=== PATIENT | female | born 1950 | race Caucasian/White ===

== ENCOUNTER 2016-10-05 14:17 | Observation (INO) | payer OTHER ==
[~2016-10-05] VITALS: Ht 154.9 cm; Wt 74.0 kg
[~2016-10-05 14:17] MED LIST: BENICAR20 MG PO; JANUMET 50/11 TABLET PO; LEVEMIR FL100 UNITS/ SC; LIPITOR80 MG PO; NITROLINGUAL S4.9 GM TL; NOVOLOG PE100 UNITS/; OMEPRAZOLE20 MG PO; PLAVIX75 MG PO; SYNTHROID100 MCG PO; TOPROL XL50 MG PO; TRICOR145 MG PO
[2016-10-05 15:06] LABS: HEMATOCRIT 38.8 % (36.0-46.0); MCH 30.4 PG (29.0-34.0); MCHC 33.5 G/DL (30.0-36.0); MCV 90.9 FL (83-99); MEAN PLAT.VOLUME 11.4 uM^3 (9.5-12.4); PLATELET COUNT 225 K/uL (156-360); RBC DIS.WIDTH-CV 13.2 % (11.8-14.6); RED BLOOD COUNT 4.27 M/uL (3.80-5.20); WHITE BLOOD COUNT 7.6 K/uL (4.1-10.2)
[2016-10-05 15:13] LABS: ADD MIUA? NO; BILIRUBIN NEGATIVE; BLOOD NEGATIVE; COLOR YELLOW ((YELLOW)); GLUCOSE (STRIP) NEGATIVE; KETONES NEGATIVE; LEUKOCYTES NEGATIVE; NITRITE NEGATIVE; PROTEIN (STRIP) NEGATIVE; SPECIFIC GRAVITY 1.015 (1.000-1.030); UROBILINOGEN 0.2 MG/DL (0.2-1.0)
[2016-10-05 15:26] LABS: CHLORIDE 106 mEq/L (99-109); POTASSIUM 4.1 mEq/L (3.7-5.4); SODIUM 142 mEq/L (136-147)
[2016-10-05 15:27] LABS: TROP-I INTERPRETATION NEGATIVE; TROPONIN-I < 0.01 ng/mL (0.0-0.30)
[2016-10-05 15:28] LABS: GLUCOSE 147 mg/dL (70-99)
[2016-10-05 15:29] LABS: ANION GAP 14 MEQ/L (2-14)
[2016-10-05 15:30] LABS: TOTAL BILIRUBIN 0.4 mg/dL (0.0-1.0)
[2016-10-05 15:31] LABS: ALKALINE PHOSPHATASE 54 IU/L (3-129)
[2016-10-05 15:32] LABS: GFR ESTIMATE (CALCULATED) 53 mL/min/
[2016-10-05 15:33] LABS: UREA NITROGEN (BUN) 24 mg/dL (9-23)
[2016-10-05 15:35] LABS: LIPASE 49 U/L (1.0-51.0)
[2016-10-05] MEDS ORDERED: NITROLINGUAL S4.9 GM MM (16:19)
[2016-10-05] MEDS ORDERED: OMEPRAZOLE40 M1 PO (16:20)
[2016-10-05] MEDS ORDERED: NOVOLOG PE100 UNITS/ SC (16:20)
[2016-10-05] MEDS ORDERED: NOVOLOG 10100 UNITS/ SC (16:21)
[2016-10-05] MEDS ORDERED: LO-DOSE ASPIRIN81 M2 PO (16:22)
[2016-10-05] MEDS ORDERED: FISH OIL 1,0001 EAC7 PO (16:22)
[2016-10-05] MEDS ORDERED: MELATONIN5 M1 PO (16:22)
[2016-10-05] MEDS ORDERED: CENTRUM SILVER1 EAC3 PO (16:22)
[2016-10-05] MEDS ORDERED: LEVEMIR100 UNIT/2 SC (16:22)
[2016-10-05] MEDS ORDERED: SYNTHROID100 MCG PO (16:22)
[2016-10-05 21:18] VITALS: BP 106/56
[2016-10-05 22:27] LABS: TROP-I INTERPRETATION NEGATIVE; TROPONIN-I < 0.01 ng/mL (0.0-0.30)
[2016-10-06 04:16] LABS: HEMATOCRIT 34.6 % (36.0-46.0); MCH 30.1 PG (29.0-34.0); MCHC 32.9 G/DL (30.0-36.0); MCV 91.3 FL (83-99); MEAN PLAT.VOLUME 11.5 uM^3 (9.5-12.4); PLATELET COUNT 184 K/uL (156-360); RBC DIS.WIDTH-CV 13.3 % (11.8-14.6); RBC DIS.WIDTH-SD 42.6 % (39-53); RED BLOOD COUNT 3.79 M/uL (3.80-5.20); WHITE BLOOD COUNT 7.4 K/uL (4.1-10.2)
[2016-10-06 04:25] VITALS: BP 141/82
[2016-10-06 04:28] LABS: CHLORIDE 110 mEq/L (99-109); SODIUM 142 mEq/L (136-147)
[2016-10-06 04:30] LABS: GLUCOSE 108 mg/dL (70-99)
[2016-10-06 04:31] LABS: ANION GAP 9 MEQ/L (2-14)
[2016-10-06 04:34] LABS: GFR ESTIMATE (CALCULATED) 48 mL/min/
[2016-10-06 04:35] LABS: UREA NITROGEN (BUN) 23 mg/dL (9-23)
[2016-10-06 04:38] LABS: TROP-I INTERPRETATION NEGATIVE; TROPONIN-I < 0.01 ng/mL (0.0-0.30)
[2016-10-06 07:24] LABS: POINT-OF-CARE METER ID UU14162513
[2016-10-06 08:30] VITALS: BP 102/63
[2016-10-06 12:45] LABS: POINT-OF-CARE METER ID UU13113700
[2016-10-06 13:11] VITALS: BP 106/52; BP 125/71
== END 2016-10-06 13:41 | disposition home or self-care (01) ==
LOC: EME 14:17 → 5WEST 16:32 → EDOF 16:32 → 5WEST 19:19
PROVIDERS: Hospitalist; Internal Medicine; Nurse Practitioner Family
DX: R07.89 Other chest pain (principal); I25.10 Atherosclerotic heart disease of native coronary artery without angina pectoris; I25.2 Old myocardial infarction; R00.2 Palpitations; N18.9 Chronic kidney disease, unspecified; Z95.5 Presence of coronary angioplasty implant and graft; E78.5 Hyperlipidemia, unspecified; I12.9 Hypertensive chronic kidney disease with stage 1 through stage 4 chronic kidney disease, or unspecified chronic kidney disease; E11.22 Type 2 diabetes mellitus with diabetic chronic kidney disease; Z79.82 Long term (current) use of aspirin; Z79.4 Long term (current) use of insulin; E03.9 Hypothyroidism, unspecified; D50.9 Iron deficiency anemia, unspecified; Z79.899 Other long term (current) drug therapy
CPT/HCPCS: 71020; 80048; 80053; 81003; 82948; 83690; 84484; 85027; 93005; 99281; 99284; G0378; J1644; J1815; J7030

== ENCOUNTER 2017-01-11 12:34 | Inpatient (IN) | payer OTHER ==
[~2017-01-11] VITALS: Ht 154.9 cm; Wt 75.0 kg
[~2017-01-11 12:34] MED LIST changes: +CENTRUM SILVER1 EAC3 PO; +FISH OIL 1,0001 EAC7 PO; +LEVEMIR100 UNIT/2 SC; +LO-DOSE ASPIRIN81 M2 PO; +MELATONIN5 M1 PO; +NITROLINGUAL S4.9 GM MM; +NOVOLOG 10100 UNITS/ SC; +NOVOLOG PE100 UNITS/ SC; +OMEPRAZOLE40 M1 PO
[2017-01-11 13:15] LABS: HEMATOCRIT 38.9 % (36.0-46.0); MCH 30.3 PG (29.0-34.0); MCHC 32.6 G/DL (30.0-36.0); MCV 92.8 FL (83-99); MEAN PLAT.VOLUME 11.4 uM^3 (9.5-12.4); PLATELET COUNT 253 K/uL (156-360); RBC DIS.WIDTH-CV 13.1 % (11.8-14.6); RBC DIS.WIDTH-SD 44.1 % (39-53); RED BLOOD COUNT 4.19 M/uL (3.80-5.20); WHITE BLOOD COUNT 10.4 K/uL (4.1-10.2)
[2017-01-11 13:23] LABS: CHLORIDE 105 mEq/L (99-109); SODIUM 139 mEq/L (136-147)
[2017-01-11 13:25] LABS: GLUCOSE 102 mg/dL (70-99)
[2017-01-11 13:26] LABS: ANION GAP 12 MEQ/L (2-14)
[2017-01-11 13:27] LABS: TOTAL BILIRUBIN 0.6 mg/dL (0.0-1.0)
[2017-01-11 13:29] LABS: ALKALINE PHOSPHATASE 44 IU/L (3-129); GFR ESTIMATE (CALCULATED) 43 mL/min/
[2017-01-11 13:30] LABS: UREA NITROGEN (BUN) 25 mg/dL (9-23)
[2017-01-11 14:12] LABS: ADD MIUA? YES; BILIRUBIN NEGATIVE; BLOOD NEGATIVE; COLOR YELLOW ((YELLOW)); GLUCOSE (STRIP) NEGATIVE; KETONES NEGATIVE; LEUKOCYTES SMALL; NITRITE NEGATIVE; PROTEIN (STRIP) NEGATIVE; SPECIFIC GRAVITY 1.014 (1.000-1.030); UROBILINOGEN 0.2 MG/DL (0.2-1.0)
[2017-01-11 14:16] LABS: BACTERIA 1+ /HPF; EPITHELIAL CELLS NONE SEEN /HPF; MUCUS NONE SEEN /LPF; RED BLOOD CELLS 0-5 /HPF (0-5); UCUL ADDED? NO
[2017-01-11] MEDS ORDERED: OMEGA-3 FISH O1 EA11 PO (18:38)
[2017-01-11] MEDS ORDERED: LEVEMIR FL100 UNIT/1 SC (18:40)
[2017-01-11 20:00] VITALS: BP 130/60
[2017-01-11 21:42] LABS: POINT-OF-CARE METER ID UU13113831
[2017-01-12] VITALS (7 sets, daily range): BP systolic 106–136; BP diastolic 61–79
[2017-01-12 05:37] LABS: ANION GAP 5 MEQ/L (2-14); CHLORIDE 107 MEQ/L (99-109); GFR ESTIMATE (CALCULATED) 43 mL/min/; GLUCOSE 127 mg/dL (70-99); SAMPLE HEMOLYSIS CHECK 0; SAMPLE ICTERIC CHECK 0; SAMPLE LIPEMIA CHECK 0; SODIUM 141 MEQ/L (136-147); UREA NITROGEN (BUN) 23 mg/dL (9-23)
[2017-01-12 06:18] LABS: EOSINOPHIL (%) 9.7 % (0-5); EOSINOPHIL COUNT 0.6 K/uL (0-0.3); HEMATOCRIT 31.1 % (36.0-46.0); IMMATURE GRANULOCYTE (%) 0.9 % (0.0-0.7); IMMATURE GRANULOCYTE COUNT 0.1 K/uL; LYMPHOCYTE COUNT 2.1 K/uL (1.0-2.8); MCH 30.4 PG (29.0-34.0); MCHC 31.8 G/DL (30.0-36.0); MCV 95.4 FL (83-99); MEAN PLAT.VOLUME 11.7 uM^3 (9.5-12.4); MONOCYTE (%) 12.7 % (3-12); MONOCYTE COUNT 0.8 K/uL (0-0.8); PLATELET COUNT 184 K/uL (156-360); RBC DIS.WIDTH-CV 13.1 % (11.8-14.6)
[2017-01-12 06:27] LABS: RED BLOOD COUNT 3.26 M/uL (3.80-5.20); WHITE BLOOD COUNT 6.6 K/uL (4.1-10.2)
[2017-01-12 08:38] LABS: POINT-OF-CARE METER ID UU14162513
[2017-01-12 12:26] LABS: POINT-OF-CARE METER ID UU13113831
[2017-01-12 18:50] LABS: INTERNAL CONTROL VALID? YES
[2017-01-12 19:19] LABS: C DIFF TOXIN NEGATIVE (NEGATIVE)
[2017-01-12 19:40] LABS: PROBE CHECK PASS; SPECIMEN PROCESSING CONTROL PASS
[2017-01-13 03:34] VITALS: BP 125/60
[2017-01-13 07:45] LABS: HEMATOCRIT 36.6 % (36.0-46.0); MCH 30.6 PG (29.0-34.0); MCHC 32.5 G/DL (30.0-36.0); MCV 94.1 FL (83-99); MEAN PLAT.VOLUME 11.3 uM^3 (9.5-12.4); PLATELET COUNT 223 K/uL (156-360); RBC DIS.WIDTH-CV 13.1 % (11.8-14.6); RBC DIS.WIDTH-SD 45.1 % (39-53); RED BLOOD COUNT 3.89 M/uL (3.80-5.20); WHITE BLOOD COUNT 7.5 K/uL (4.1-10.2)
[2017-01-13 07:55] VITALS: BP 132/71
[2017-01-13 08:11] LABS: ANION GAP 10 MEQ/L (2-14); CHLORIDE 106 MEQ/L (99-109); GFR ESTIMATE (CALCULATED) 48 mL/min/; GLUCOSE 150 mg/dL (70-99); SAMPLE HEMOLYSIS CHECK 0; SAMPLE ICTERIC CHECK 0; SAMPLE LIPEMIA CHECK 0; SODIUM 141 MEQ/L (136-147); UREA NITROGEN (BUN) 11 mg/dL (9-23)
[2017-01-13 12:00] VITALS: BP 134/61
[2017-01-13 14:14] LABS: POINT-OF-CARE METER ID UU13113694
[2017-01-13 15:04] LABS: POINT-OF-CARE METER ID UU13113819
[2017-01-13 15:30] VITALS: BP 115/57
[2017-01-13 23:59] VITALS: BP 131/62
[2017-01-14 06:37] LABS: EOSINOPHIL (%) 6.2 % (0-5); EOSINOPHIL COUNT 0.4 K/uL (0-0.3); HEMATOCRIT 34.8 % (36.0-46.0); IMMATURE GRANULOCYTE (%) 0.6 % (0.0-0.7); INSTRUMENT ABS NEUTROPHIL CT 3.6 K/uL; MCH 30.1 PG (29.0-34.0); MCHC 31.6 G/DL (30.0-36.0); MCV 95.3 FL (83-99); MEAN PLAT.VOLUME 11.5 uM^3 (9.5-12.4); MONOCYTE COUNT 0.8 K/uL (0-0.8); NEUTROPHIL (%) 53.2 % (45-76); NEUTROPHIL COUNT 3.6 K/uL (1.8-6.4); PLATELET COUNT 219 K/uL (156-360); RBC DIS.WIDTH-SD 45.9 % (39-53); RED BLOOD COUNT 3.65 M/uL (3.80-5.20); WHITE BLOOD COUNT 6.8 K/uL (4.1-10.2)
[2017-01-14 06:59] LABS: ANION GAP 8 MEQ/L (2-14); CHLORIDE 108 MEQ/L (99-109); GFR ESTIMATE (CALCULATED) 53 mL/min/; GLUCOSE 134 mg/dL (70-99); POTASSIUM 3.8 MEQ/L (3.7-5.4); SAMPLE HEMOLYSIS CHECK 0; SAMPLE ICTERIC CHECK 0; SAMPLE LIPEMIA CHECK 0; SODIUM 143 MEQ/L (136-147); UREA NITROGEN (BUN) 7 mg/dL (9-23)
[2017-01-14 07:46] VITALS: BP 132/70
[2017-01-14] MEDS ORDERED: CIPRO500 MG PO (08:32)
[2017-01-14] MEDS ORDERED: FLAGYL500 MG PO (08:32)
[2017-01-16 13:06] LABS: POC NON-PRINT COM 1 ND
== END 2017-01-14 10:11 | disposition home or self-care (01) | DRG 392 ==
LOC: EME 12:34 → 5WEST 18:57 → EDOF 18:57 → 5WEST 19:44 → 2EAST 01-12 10:57 → 5WEST 01-12 10:57 → 2EAST 01-12 15:15
PROVIDERS: Hospitalist; Internal Medicine; Internal Medicine Gastroenterology
PROC: 0DBM8ZX Excision of Descending Colon, Via Natural or Artificial Opening Endoscopic, Diagnostic (ICD-10-PCS; principal; 2017-01-13)
DX: K52.9 Noninfective gastroenteritis and colitis, unspecified (principal); I25.10 Atherosclerotic heart disease of native coronary artery without angina pectoris; Z95.5 Presence of coronary angioplasty implant and graft; I10 Essential (primary) hypertension; E03.9 Hypothyroidism, unspecified; E11.9 Type 2 diabetes mellitus without complications; E78.5 Hyperlipidemia, unspecified; I25.2 Old myocardial infarction; R10.32 Left lower quadrant pain; R19.00 Intra-abdominal and pelvic swelling, mass and lump, unspecified site; K64.8 Other hemorrhoids
CPT/HCPCS: 74176; 80048; 80053; 80069; 81003; 82272; 82948; 83605; 85025; 85027; 87040; 87493; 88305; 99281; 99285; G0378; J0744; J1644; J1815; J2270; J2405; J3010; J7030; S0030

== ENCOUNTER 2017-08-25 17:40 | Emergency (ER) | payer OTHER ==
[~2017-08-25] VITALS: Ht 154.9 cm; Wt 73.7 kg
[~2017-08-25 17:40] MED LIST changes: +CIPRO500 MG PO; +FLAGYL500 MG PO; +LEVEMIR FL100 UNIT/1 SC; +OMEGA-3 FISH O1 EA11 PO
[2017-08-25 20:48] VITALS: BP 143/67
== END 2017-08-25 20:49 | disposition home or self-care (01) ==
LOC: EME 17:40
DX: S00.33XA Contusion of nose, initial encounter (principal); S09.90XA Unspecified injury of head, initial encounter; W10.1XXA Fall (on)(from) sidewalk curb, initial encounter; K21.9 Gastro-esophageal reflux disease without esophagitis; I10 Essential (primary) hypertension; E78.5 Hyperlipidemia, unspecified; E11.9 Type 2 diabetes mellitus without complications; E03.9 Hypothyroidism, unspecified; I25.10 Atherosclerotic heart disease of native coronary artery without angina pectoris; I25.2 Old myocardial infarction; Z95.5 Presence of coronary angioplasty implant and graft; Z79.02 Long term (current) use of antithrombotics/antiplatelets; Z79.4 Long term (current) use of insulin; Z79.82 Long term (current) use of aspirin
CPT/HCPCS: 70450; 99281; 99283

== ENCOUNTER 2017-11-01 19:42 | Observation (INO) | payer OTHER ==
[~2017-11-01] VITALS: Ht 154.9 cm; Wt 76.5 kg
[~2017-11-01 19:42] MED LIST changes: -OMEPRAZOLE40 M1 PO; +PRILOSEC20 MG PO; +TOPROL XL25 MG PO; -TOPROL XL50 MG PO
[2017-11-01 20:00] LABS: HEMATOCRIT 35.9 % (36.0-46.0); HEMOGLOBIN 12.1 G/DL (11.9-15.5); MCH 31.5 PG (29.0-34.0); MCHC 33.7 G/DL (30.0-36.0); MCV 93.5 FL (83-99); PLATELET COUNT 236 K/uL (156-360); RBC DIS.WIDTH-CV 13.4 % (11.8-14.6); RBC DIS.WIDTH-SD 45.9 % (39-53); RED BLOOD COUNT 3.84 M/uL (3.80-5.20); WHITE BLOOD COUNT 8.1 K/uL (4.1-10.2)
[2017-11-01 20:12] LABS: CHLORIDE 105 mEq/L (99-109); POTASSIUM 4.4 mEq/L (3.7-5.4); SODIUM 138 mEq/L (136-147)
[2017-11-01 20:14] LABS: GLUCOSE 167 mg/dL (70-99)
[2017-11-01 20:18] LABS: CREATININE 1.1 mg/dL (0.6-1.3); GFR ESTIMATE (CALCULATED) 53 mL/min/
[2017-11-01 20:19] LABS: UREA NITROGEN (BUN) 27 mg/dL (9-23)
[2017-11-01 20:27] LABS: TROP-I INTERPRETATION NEGATIVE; TROPONIN-I < 0.01 ng/mL (0.0-0.30)
[2017-11-01] MEDS ORDERED: LEXAPRO5 MG PO (22:13)
[2017-11-01] MEDS ORDERED: IMODIUM A-D2 M2 PO (22:13)
[2017-11-01] MEDS ORDERED: IRON325 M1 PO (22:14)
[2017-11-01] MEDS ORDERED: OSTEO BI-FLEX1 EAC3 PO (22:14)
[2017-11-01] MEDS ORDERED: TYLENOL ARTHRI650 MG PO (22:14)
[2017-11-01 23:15] LABS: TROP-I INTERPRETATION NEGATIVE; TROPONIN-I 0.02 ng/mL (0.0-0.30)
[2017-11-01 23:27] VITALS: BP 157/73
[2017-11-02 03:06] LABS: TROP-I INTERPRETATION NEGATIVE; TROPONIN-I < 0.01 ng/mL (0.0-0.30)
[2017-11-02 04:07] VITALS: BP 121/76
[2017-11-02 07:20] VITALS: BP 125/67
[2017-11-02 10:54] VITALS: BP 110/55
== END 2017-11-02 14:35 | disposition home or self-care (01) ==
LOC: EME 19:42 → 5WEST 21:49 → EDOF 21:49 → ENRESERV 21:52 → 5WEST 23:15
PROVIDERS: Hospitalist
DX: R07.9 Chest pain, unspecified (principal); I10 Essential (primary) hypertension; E11.9 Type 2 diabetes mellitus without complications; M19.90 Unspecified osteoarthritis, unspecified site; E03.9 Hypothyroidism, unspecified; I25.10 Atherosclerotic heart disease of native coronary artery without angina pectoris; I25.2 Old myocardial infarction; Z95.5 Presence of coronary angioplasty implant and graft; E66.9 Obesity, unspecified; F32.9 Major depressive disorder, single episode, unspecified; E78.5 Hyperlipidemia, unspecified; D50.9 Iron deficiency anemia, unspecified; Z79.82 Long term (current) use of aspirin; Z79.02 Long term (current) use of antithrombotics/antiplatelets; Z79.4 Long term (current) use of insulin; Z90.710 Acquired absence of both cervix and uterus; Z80.9 Family history of malignant neoplasm, unspecified
CPT/HCPCS: 71046; 80048; 82948; 84484; 85027; 85379; 93005; 99281; 99285; G0378